=== PATIENT | male | born 1965 | race Caucasian/White ===

== ENCOUNTER 2018-04-03 18:17 | Observation (INO) | payer OTHER ==
[2018-04-03] MEDS ORDERED: NORMAL SALINE 1000 ML 1,000 ML IV ONE ×2 (18:49→20:53)
[2018-04-03] MEDS ORDERED: ASPIRIN 325 MG TABLET PO ONE (18:49)
--- NOTE | 2018-04-03 18:52 | ER Document Report ---
ED Dizziness/Weakness - General Chief Complaint: Syncope Stated Complaint: SYNCOPAL EPISODE Time Seen by Provider: 04/03/18 18:39 TRAVEL OUTSIDE OF THE [place] IN LAST 30 DAYS: No - HPI Patient complains to provider of: Syncope - This 53-year-old man presents for evaluation of an episode of syncope. He notes that for the last 2 days he was out size and working. He began to feel unwell while sitting at the table having pain in the chart right arm and a sense of nausea and diaphoresis at which time he stood up to go to the bedroom while he was walking to the bedroom he had a syncopal episode. He lost consciousness entirely fell to the ground. He hit his knee, at the time his family member found him call for help. He came back around afterwards said that he feels incredibly tired discontinued to feel great fatigue since. He denies any episodes like this in the past, he does have a history of hypertension hyperlipidemia as well as diabetes no history of UT or CVA in the past. Nothing is seen to make it any better nothing is seen to make it any worse except for walking. - Related Data Allergies/Adverse Reactions: No Known Allergies Allergy (Verified 08/16/13 17:41) Past Medical History - General Information source: Patient - Social History Smoking Status: Unknown if Ever Smoked Chew tobacco use (# tins/day): No Frequency of alcohol use: Occasional Drug Abuse: None Lives with: Parents Family History: Reviewed & Not Pertinent Patient has suicidal ideation: No Patient has homicidal ideation: No - Past Medical History Cardiac Medical History: Reports: Hx Hypercholesterolemia, Hx Hypertension Pulmonary Medical History: Reports: Hx Bronchitis, Hx Pneumonia Endocrine Medical History: Reports: Hx Diabetes Mellitus Type 2 Renal/ Medical History: Denies: Hx Peritoneal Dialysis Past Surgical History: Reports: Hx Oral Surgery, Hx Orthopedic Surgery - L4-L5 discectomy - Immunizations Hx Diphtheria, Pertussis, Tetanus Vaccination: Yes Review of Systems - Review of Systems -: Yes All other systems reviewed and negative Physical Exam - Vital signs Vitals: Resp Pulse Ox 18 96 04/03/18 18:36 04/03/18 18:36 - General General appearance: Lethargic In distress: None - HEENT Head: Normocephalic Eyes: Normal Conjunctiva: Normal Cornea: Normal Neck: Normal - Respiratory Respiratory status: No respiratory distress Chest status: Nontender Breath sounds: Normal Chest palpation: Normal - Cardiovascular Rhythm: Regular Heart sounds: Normal auscultation - Abdominal Inspection: Normal Distension: No distension Bowel sounds: Normal Tenderness: Nontender - Back Back: Normal, Nontender - Extremities General upper extremity: Normal inspection General lower extremity: Normal inspection - Neurological Neuro grossly intact: Yes - Skin Skin Temperature: Warm Course - Re-evaluation Re-evalutation: 04/04/18 03:35 Mr. Nicolas is a 53-year-old man presented after an episode of syncope having been outside for prolonged period of time with the prodrome that included right sided chest symptoms. Given the concern for his constellation of symptoms initiated broad-spectrum workup including cardiac. Patient with initial hypotension, administered IV fluids for this patient's hypotension. After 2 L of normal saline this patient's blood pressure improved to a normal systolic range, his laboratory evaluation demonstrated an acute kidney injury suggestive of dehydration a post renal azotemia. Given his persistent lightheadedness symptoms with a history suggestive of potential risk factors for cardiac etiology will plan for this patient to undergo admission with monitoring. Have discussed patient's care with hospitalist who agrees at this time for admission. We will continue to monitor and emergency department and reassess as necessary. - Vital Signs Vital signs: Temp Pulse Resp BP Pulse Ox 15 85/53 L 97 04/04/18 02:05 04/04/18 02:05 04/03/18 22:35 - Laboratory Result Diagrams: 04/03/18 18:35 04/03/18 18:35 Laboratory results interpreted by me: 04/03/18 04/03/18 18:35 18:35 WBC 17.5 H Absolute Neutrophils 13.5 H Carbon Dioxide 21 L Creatinine 1.71 H Est GFR ( Amer) 51 L Est GFR (Non-Af Amer) 42 L Glucose 162 H Creatine Kinase 178 H - EKG Interpretation by Ia EKG shows normal: Sinus rhythm - 89 bpm, normal axis, no appreciable ST segment changes, relatively unchanged from previous 04/01/2014 Discharge - Discharge Clinical Impression: Hypotension Syncope Qualifiers: Syncope type: unspecified Qualified Code(s): R55 - Syncope and collapse Condition: Stable Disposition: ADMITTED INPATIENT Admitting Provider: Hospitalist Unit Admitted: Medical Floor
[2018-04-03 18:59] LABS: ABSOLUTE BASOPHILS # (AUTO) 0.1 10^3/uL (0.0-0.2); ABSOLUTE EOSINOPHILS # (AUTO) 0.1 10^3/uL (0.0-0.6); ABSOLUTE LYMPHOCYTES (AUTO) 2.9 10^3/uL (0.5-4.7); ABSOLUTE MONOCYTES (AUTO) 0.9 10^3/uL (0.1-1.4); ABSOLUTE NEUT (AUTO) 13.5 10^3/uL (1.7-8.2); BASOPHILS % (AUTO) 0.4 % (0-2); EOSINOPHILS % (AUTO) 0.6 % (0-6); HEMATOCRIT 43.3 % (37.9-51.0); HEMOGLOBIN 14.9 g/dL (13.5-17.0); LYMPHOCYTES % (AUTO) 16.5 % (13-45); MEAN CORPUSCULAR HEMOGLOBIN 31.5 pg (27.0-33.4); MEAN CORPUSCULAR HGB CONC 34.3 g/dL (32.0-36.0); MEAN CORPUSCULAR VOLUME 92 fl (80-97); MONOCYTES % (AUTO) 5.4 % (3-13); PLATELET COUNT 303 10^3/uL (150-450); RED BLOOD COUNT 4.72 10^6/uL (4.35-5.55); RED CELL DISTRIBUTION WIDTH 13.3 % (11.5-14.0); SEGMENTED NEUTROPHILS % (AUTO) 77.1 % (42-78); TOTAL CELLS COUNTED % (AUTO) 100 %; WHITE BLOOD COUNT 17.5 10^3/uL (4.0-10.5)
[2018-04-03 19:04] LABS: PROTHROMBIN TIME 13.7 SEC (11.4-15.4)
[2018-04-03 19:18] LABS: ALANINE AMINOTRANSFERASE 25 U/L (21-72); ALBUMIN 4.6 g/dL (3.5-5.0); ALKALINE PHOSPHATASE 42 U/L (38-126); ANION GAP 17 (5-19); ASPARTATE AMINO TRANSFERASE 28 U/L (17-59); BILIRUBIN,DIRECT 0.4 mg/dL (0.0-0.4); BILIRUBIN,TOTAL 0.7 mg/dL (0.2-1.3); BLOOD UREA NITROGEN 13 mg/dL (7-20); CALCIUM 9.7 mg/dL (8.4-10.2); CARBON DIOXIDE 21 mmol/L (22-30); CHLORIDE 104 mmol/L (98-107); CREATINE KINASE 178 U/L (55-170); GLUCOSE 162 mg/dL (75-110); POTASSIUM 3.7 mmol/L (3.6-5.0); SODIUM 141.9 mmol/L (137-145)
[2018-04-03 19:27] LABS: CREATINE KINASE MB 2.25 ng/mL (<4.55)
[2018-04-03 19:29] LABS: TROPONIN I < 0.012 ng/mL
--- NOTE | 2018-04-03 20:09 | RADIOLOGY REPORT (SQ) ---
EXAM DESCRIPTION: CHEST 2 VIEWS COMPLETED DATE/TIME: 04/03/2018 7:53 pm REASON FOR STUDY: syncopal COMPARISON: 04/11/2013 EXAM PARAMETERS: NUMBER OF VIEWS: two views TECHNIQUE: Digital Frontal and Lateral radiographic views of the chest acquired. RADIATION DOSE: NA LIMITATIONS: none FINDINGS: LUNGS AND PLEURA: There is ill-defined opacification in both lower lung vazquez. There is opacification posteriorly and inferiorly on the lateral view. MEDIASTINUM AND HILAR STRUCTURES: No masses or contour abnormalities. HEART AND VASCULAR STRUCTURES: Heart normal size. No evidence for failure. BONES: No acute findings. HARDWARE: None in the chest. OTHER: No other significant finding. IMPRESSION: Cannot exclude a lower lobe pneumonia on either side. TECHNICAL DOCUMENTATION: JOB ID: [id number] [employer]- All Rights Reserved Reading location - IP/workstation name: [email or web address]
[2018-04-03] MEDS ORDERED: MAGNESIUM HYDROXIDE SUSP 30 ML UDCUP PO PRN (22:05)
[2018-04-03] MEDS ORDERED: ACETAMINOPHEN 325 MG TABLET PO PRN (22:05)
[2018-04-03] MEDS ORDERED: NORMAL SALINE 1000 ML 1,000 ML IV PRN (22:05)
[2018-04-03] MEDS ORDERED: ONDANSETRON HCL INJ/PF 4 MG/2 ML SDV IV PRN (22:05)
[2018-04-03] MEDS ORDERED: DEXTROSE 50%-WATER 25 GM/50 ML DISP.SYRIN IV PRN ×2 (22:12)
[2018-04-03] MEDS ORDERED: GLUCAGON,HUMAN RECOMB 1 MG INJ IM PRN (22:12)
[2018-04-03] MEDS ORDERED: INSULIN LISPRO 100 UNIT/ML 3 ML VIAL SUBCUT PRN (22:12)
[2018-04-03] MEDS ORDERED: DEXTROSE 40% GEL 15 GM TUBE PO PRN ×2 (22:12)
--- NOTE | 2018-04-03 22:26 | EKG REPORT ---
SEVERITY:- NORMAL ECG - SINUS RHYTHM : Confirmed by: Ananya Simental MD 03-Apr-2018 22:26:12
[2018-04-03] MEDS ORDERED: ATORVASTATIN CALCIUM 10 MG TABLET PO ONE (22:30)
--- NOTE | 2018-04-03 22:46 | PDOC H&P ---
History of Present Illness Admission Date/PCP: 04/03/18 22:05 [facility] Patient complains of: "I passed out" History of Present Illness: NICOLAS RIBEIRO is a 53 year old male who with history of multiple medical problems that will be mentioned below presented to the emergency room with a calcium of syncope. The patient spent 6 hours outside repairing a water pump yesterday and about 5 hours today cutting grass. He was sitting to eat dinner when he had a syncopal episode followed by nausea and vomiting as well as right arm and jaw pain. Denies any chest pain or palpitations, dyspnea or hemoptysis. No leg pain or edema or recent travels or surgeries. No fever or chills. He was noted to be hypotensive by EMS with a systolic blood pressure of 72. He responded to hydration in the emergency room. When he came to the ER is EKG showed normal sinus rhythm with a rate of 89 with Q waves in lead III. His labs were remarkable for a creatinine of 1.7 and leukocytosis of 17.5 with a blood glucose of 162. His blood pressure was 125/ 75 here with respiratory rate of 15 pulse oximetry of 95% on room air. Chest x- ray showed the suspected bibasal lower lung vazquez opacifications however the patient had no respiratory symptoms and denied choking on food or aspiration. His CK was 171 and otherwise cardiac enzymes were negative. He was given hydration with IV normal saline as well as aspirin and Lipitor. He was admitted to an observation telemetry bed for further evaluation and monitoring. Past Medical History Past Medical History: Obstructive sleep apnea on home CPAP at 14 cm water, ongoing tobacco abuse Cardiac Medical History: Reports: Hyperlipidema, Hypertension Pulmonary Medical History: Reports: Bronchitis, Pneumonia, Other - Obstructive sleep apnea on home CPAP at 14 cm water Endocrine Medical History: Reports: Diabetes Mellitus Type 2 Past Surgical History Past Surgical History: Reports: Orthopedic Surgery - L4-L5 discectomy, Other - Right shoulder surgery Social History Lives with: Parents Smoking Status: Current Every Day Smoker - 1 pack of service per day Last Alcohol Use: 04/03/18 - He rarely drinks beer Family History Family History: DM - In both parents Parental Family History Reviewed: Yes Children Family History Reviewed: Yes Sibling(s) Family History Reviewed.: Yes Medication/Allergy Home Medications: Albuterol 2 puff IH Q4H PRN 02/02/12 Alprazolam [Xanax] 1 mg PO DAILY 09/30/11 Ciprofloxacin HCl [Cipro 500 mg Tablet] 500 mg RT_EAR BID 09/30/11 Lovastatin [Altoprev] 20 mg PO DAILY 09/30/11 Metformin HCl [Glumetza] 1,000 mg PO BID 09/30/11 Sulfamethoxazole/Trimethoprim [Septra Susp 800-160 Mg/20 Ml Udcup] 20 ml RT_EAR BID 09/30/11 Hydrocodone Bit/Acetaminophen [Ratcliff 7.5-325 Tablet] 1 each PO Q6H PRN #20 tablet 04/11/13 Levofloxacin [Levaquin 750 mg Tablet] 750 mg PO DAILY #10 tablet 04/11/13 Allergies/Adverse Reactions: No Known Allergies Allergy (Verified 08/16/13 17:41) Review of Systems Review of Systems: As per history of present illness. All pertinent systems were reviewed above. Constitutional, HEENT, cardiovascular, respiratory, GI, , musculoskeletal, neuro, psychiatric, endocrine, integumentary and hematologic systems were reviewed and are otherwise negative/unremarkable except for positive findings mentioned above in the HPI. Physical Exam Vital Signs: Temp Pulse Resp BP Pulse Ox 15 125/76 95 04/03/18 21:30 04/03/18 21:30 04/03/18 21:30 Intake & Output 04/02/18 04/03/18 04/04/18 06:59 06:59 06:59 Intake Total 1000 Balance 1000 Exam: Generally: Very pleasant middle-aged obese male in no acute distress. He is mildly somnolent but easily arousable Vital signs-as listed Head - atraumatic, normocephalic. Pupils - equal, round and reactive to light and accommodation. Extraocular movements are intact. No scleral icterus. Oropharynx - moist mucous membranes and tongue. No pharyngeal erythema or exudate. Neck - supple. No JVD. Carotid pulses 2+ bilaterally. No carotid bruits. No palpable thyromegaly or lymphadenopathy. Cardiovascular - regular rate and rhythm. Normal S1 and S2. No murmurs, gallops or rubs. Lungs - clear to auscultation bilaterally. Abdomen - soft and nontender. Positive bowel sounds. No palpable organomegaly or masses. Extremities - no pitting edema, clubbing or cyanosis. Neuro - grossly non-focal. Skin - no rashes. and rectal exam - deferred. Results Impressions: Chest X-Ray 04/03/18 00:00 IMPRESSION: Cannot exclude a lower lobe pneumonia on either side. Assessment & Plan - Diagnosis (1) Syncope Qualifiers: Syncope type: unspecified Qualified Code(s): R55 - Syncope and collapse Plan: This is likely related to volume depletion and orthostatic hypotension. The patient will be admitted to an observation medically monitored bed. Will check her orthostatics q.12 hours. Will obtain a 2D echo. The patient will be gently hydrated with IV normal saline and monitored for arrhythmias. Differential diagnosis would include neuraly mediated syncope, cardiogenic, arrhythmias related, orthostatic hypotension and less likely hypoglycemia. (2) Hypotension Is this a current diagnosis for this admission?: Yes Plan: He will be hydrated with IV normal saline as mentioned above I will check his orthostatics. (3) Acute kidney injury Is this a current diagnosis for this admission?: Yes Plan: He will be hydrated with IV normal saline and BMP will be checked. Will hold off his metformin (4) Leukocytosis Is this a current diagnosis for this admission?: Yes Plan: This is likely related to stress demargination. CBC will be followed in a.m. I do not believe he has pneumonia as he denied any respiratory symptoms. (5) Type 2 diabetes mellitus Qualifiers: Diabetes mellitus prison insulin use: without prison use Diabetes mellitus complication status: without complication Qualified Code(s): E11.9 - Type 2 diabetes mellitus without complications Is this a current diagnosis for this admission?: Yes Plan: We will hold off metformin and place him on supplemental coverage with Humalog (6) Obstructive sleep apnea Is this a current diagnosis for this admission?: Yes (7) DVT prophylaxis Is this a current diagnosis for this admission?: Yes Plan: Subcutaneous Lovenox and GI prophylaxis with IV Protonix given his nausea and vomiting. - Plan Summary Plan Summary: The plan of care was discussed in details with the patient. I answered all questions. The patient agreed to proceed with the above-mentioned plan. The patient is presumably full code. This note was created by [employer] software and may contain typo errors that may have not been proofread.
[2018-04-03 23:30] LABS: CREATINE KINASE MB 1.75 ng/mL (<4.55)
[2018-04-03 23:39] LABS: TROPONIN I < 0.012 ng/mL
[2018-04-04 05:14] LABS: ABSOLUTE BASOPHILS # (AUTO) 0.1 10^3/uL (0.0-0.2); ABSOLUTE EOSINOPHILS # (AUTO) 0.1 10^3/uL (0.0-0.6); ABSOLUTE LYMPHOCYTES (AUTO) 3.3 10^3/uL (0.5-4.7); ABSOLUTE MONOCYTES (AUTO) 0.6 10^3/uL (0.1-1.4); ABSOLUTE NEUT (AUTO) 6.3 10^3/uL (1.7-8.2); BASOPHILS % (AUTO) 1.1 % (0-2); EOSINOPHILS % (AUTO) 1.3 % (0-6); HEMATOCRIT 38.6 % (37.9-51.0); HEMOGLOBIN 13.6 g/dL (13.5-17.0); LYMPHOCYTES % (AUTO) 31.8 % (13-45); MEAN CORPUSCULAR HEMOGLOBIN 32.3 pg (27.0-33.4); MEAN CORPUSCULAR HGB CONC 35.3 g/dL (32.0-36.0); MEAN CORPUSCULAR VOLUME 92 fl (80-97); MONOCYTES % (AUTO) 5.8 % (3-13); PLATELET COUNT 236 10^3/uL (150-450); RED BLOOD COUNT 4.22 10^6/uL (4.35-5.55); RED CELL DISTRIBUTION WIDTH 12.9 % (11.5-14.0); TOTAL CELLS COUNTED % (AUTO) 100 %; WHITE BLOOD COUNT 10.4 10^3/uL (4.0-10.5)
[2018-04-04 05:37] LABS: ANION GAP 12 (5-19); BLOOD UREA NITROGEN 10 mg/dL (7-20); CALCIUM 8.5 mg/dL (8.4-10.2); CARBON DIOXIDE 18 mmol/L (22-30); CHLORIDE 113 mmol/L (98-107); CREATINE KINASE 127 U/L (55-170); GLUCOSE 99 mg/dL (75-110); POTASSIUM 3.8 mmol/L (3.6-5.0); SODIUM 143.2 mmol/L (137-145)
[2018-04-04 05:43] LABS: CREATINE KINASE MB 1.68 ng/mL (<4.55)
[2018-04-04 05:44] LABS: TROPONIN I < 0.012 ng/mL
[2018-04-04] MEDS ORDERED: ENOXAPARIN SODIUM INJ 40 MG/0.4 ML DISP.SYRIN SUBCUT SCH (10:00)
[2018-04-04] MEDS ORDERED: ALPRAZOLAM 0.5 MG TABLET PO SCH (10:00)
[2018-04-04] MEDS ORDERED: PANTOPRAZOLE SODIUM 40 MG VIAL IV SCH (10:00)
[2018-04-04 12:04] LABS: CREATINE KINASE MB 1.32 ng/mL (<4.55)
[2018-04-04 12:09] LABS: TROPONIN I < 0.012 ng/mL
--- NOTE | 2018-04-04 14:39 | RADIOLOGY REPORT (SQ) ---
EXAM DESCRIPTION: CT HEAD WITHOUT COMPLETED DATE/TIME: 04/04/2018 2:25 pm REASON FOR STUDY: syncope COMPARISON: None. TECHNIQUE: Axial images acquired through the brain without intravenous contrast. Images reviewed wi th bone, brain and subdural windows. Additional sagittal and coronal reconstructions were generated. Images stored on PACS. All CT scanners at this facility use dose modulation, iterative reconstruction, and/or weight based d osing when appropriate to reduce radiation dose to as low as reasonably achievable (ALARA). [facility]: Dose Right [facility]: CareDose [facility]: Dose Right [facility]: Teradose 4D [facility]: Vadio RADIATION DOSE: CT Rad equipment meets quality standard of care and radiation dose reduction techniq ues were employed. CTDIvol: 53.2 mGy. DLP: 1044 mGy-cm. mGy. LIMITATIONS: None. FINDINGS: VENTRICLES: Normal size and contour. CEREBRUM: No masses. No hemorrhage. No midline shift. No evidence for acute infarction. Normal gra y/white matter differentiation. No areas of low density in the white matter. CEREBELLUM: No masses. No hemorrhage. No alteration of density. No evidence for acute infarction. EXTRAAXIAL SPACES: No fluid collections. No masses. ORBITS AND GLOBE: No intra- or extraconal masses. Normal contour of globe without masses. CALVARIUM: No fracture. PARANASAL SINUSES: No fluid or mucosal thickening. SOFT TISSUES: No mass or hematoma. OTHER: No other significant finding. IMPRESSION: NORMAL BRAIN CT WITHOUT CONTRAST. EVIDENCE OF ACUTE STROKE: NO. COMMENT: Quality ID # [id number]: Final reports with documentation of one or more dose reduction techniques (e.g., Automated exposure control, adjustment of the mA and/or kV according to patient size, use of iterative reconstruction technique) TECHNICAL DOCUMENTATION: JOB ID: [id number] [employer]- All Rights Reserved Reading location - IP/workstation name: [email or web address]
--- NOTE | 2018-04-04 14:47 | RADIOLOGY REPORT (SQ) ---
EXAM DESCRIPTION: CTA CHEST COMPLETED DATE/TIME: 04/04/2018 2:25 pm REASON FOR STUDY: R chest pain with inhalation. trauma vs PE COMPARISON: 04/11/2013 TECHNIQUE: CT scan of the chest performed using helical scanning technique with dynamic intravenous contrast injection. Images reviewed with lung, soft tissue and bone windows. Reconstructed coronal and sagittal MPR images reviewed. Additional 3 dimensional post-processing performed to develop Maximal Intensity Projection images (CT P). All images stored on PACS. All CT scanners at this facility use dose modulation, iterative reconstruction, and/or weight based d osing when appropriate to reduce radiation dose to as low as reasonably achievable (ALARA). [facility]: Dose Right [facility]: CareDose [facility]: Dose Right [facility]: Teradose 4D [facility]: Gydget CONTRAST TYPE AND DOSE: contrast/concentration: Isovue 350.00 mg/ml; Total Contrast Delivered: 84.0 ml; Total Saline Delivered: 90.0 ml Contrast bolus optimized for the pulmonary arteries. Not diagnostic for the aorta. RENAL FUNCTION: GFR > 60. RADIATION DOSE: CT Rad equipment meets quality standard of care and radiation dose reduction techniq ues were employed. CTDIvol: 19.8 - 29.8 mGy. DLP: 1089 mGy-cm. . LIMITATIONS: None. FINDINGS: LUNGS AND PLEURA: Subsegmental dependent airspace disease most likely atelectasis. AORTA AND GREAT VESSELS: No aneurysm. Contrast bolus not optimized for the aorta. HEART: No pericardial effusion. Cardiomegaly. PULMONARY ARTERIES: No emboli visualized in the main pulmonary arteries or the segmental branches. HILAR AND MEDIASTINAL STRUCTURES: No identified masses or abnormal nodes. HARDWARE: None in the chest. UPPER ABDOMEN: No significant findings. Limited exam. THYROID AND OTHER SOFT TISSUES: No masses. No adenopathy. BONES: No acute or significant finding. 3D MIPS: Confirm above findings. OTHER: No other significant finding. IMPRESSION: No evidence of pulmonary embolus. No acute findings. COMMENT: Quality ID # [id number]: Final reports with documentation of one or more dose reduction techniques (e.g., Automated exposure control, adjustment of the mA and/or kV according to patient size, use of iterative reconstruction technique) TECHNICAL DOCUMENTATION: JOB ID: [id number] [employer]- All Rights Reserved Reading location - IP/workstation name: [facility]
[2018-04-04 17:11] VITALS: BP 148/86
[2018-04-04] MEDS ORDERED: ATORVASTATIN CALCIUM 10 MG TABLET PO SCH (22:00)
--- NOTE | 2018-04-05 13:03 | EKG REPORT ---
SEVERITY:- NORMAL ECG - SINUS RHYTHM THIS IS NICOLAS RIBEIRO'S EKG AND NOT FLORY RIBEIRO PER ER NURSE : Confirmed on behalf of: Ananya Simental MD 05-Apr-2018 13:03:02
--- NOTE | 2018-04-05 13:18 | XCELERA REPORT ---
[address] [address] Transthoracic Echocardiogram Report Name: NICOLAS RIBEIRO Age: 53 yrs Gender: Male : 1965 Patient Status: Inpatient Patient Location: [place] [address]^A Study Date: 04/04/2018 10:47 AM Procedure: A complete two-dimensional transthoracic echocardiogram was performed (2D, M-mode, spectral and color flow Doppler). The study was technically adequate with some images being suboptimal in quality. Reason For Study: syncope Ordering Physician: ABIOLA BETANCUR Performed By: Shakira Whelan Interpretation Summary The left ventricular ejection fraction is normal. There is mild concentric left ventricular hypertrophy. The left ventricle is grossly normal size. Doppler measurements suggest impaired left ventricular relaxation, which is associated with grade I/IV or mild diastolic dysfunction Wall motion cannot be accurately commented on, but no definite regional wall motion abnormalities noted. Borderline right ventricular enlargement. The right ventricular systolic function is normal. The right atrium is normal in size The left atrial size is normal. There is no mitral valve stenosis. There is no mitral regurgitation noted. There is no aortic valve stenosis No aortic regurgitation is present. There is a trace amount of tricuspid regurgitation Tricuspid regurgitation jet envelope not well defined to measure RV systolic pressure accurately. The aortic root is not well visualized but is probably normal size. The inferior vena cava appeared normal and decreased > 50% with respiration (RAP 5-10 mmHg) There is no pericardial effusion. May consider mobile cardiac telemetry monitoring (MCT) for ruling out transient cardiac dysrythmia MMode/2D Measurements & Calculations RVDd: 3.5 cm LVIDd: 5.0 cm FS: 46.4 % Ao root diam: 3.9 cm IVSd: 1.2 cm LVIDs: 2.7 cm EDV(Teich): 119.6 ml Ao root area: 11.7 cm2 LVPWd: 1.2 cm ESV(Teich): 26.8 ml EF(Teich): 77.6 % Doppler Measurements & Calculations MV E max annie: MV dec slope: Ao V2 max: LV V1 max P.0 cm/sec 132.9 cm/sec 4.9 mmHg MV A max annie: 520.7 cm/sec2 Ao max PG: LV V1 max: 109.6 cm/sec MV dec time: 0.19 sec7.1 mmHg 110.8 cm/sec MV E/A: 0.91 PA V2 max: TR max annie: 90.4 cm/sec 216.5 cm/sec PA max P.3 mmHg TR max P.7 mmHg Left Ventricle The left ventricle is grossly normal size. There is mild concentric left ventricular hypertrophy. The left ventricular ejection fraction is normal. Doppler measurements suggest impaired left ventricular relaxation, which is associated with grade I/IV or mild diastolic dysfunction. Wall motion cannot be accurately commented on, but no definite regional wall motion abnormalities noted. Right Ventricle Borderline right ventricular enlargement. There is normal right ventricular wall thickness. The right ventricular systolic function is normal. Atria The right atrium is normal in size. The left atrial size is normal. Interarterial septum not well visualized and not well dopplered. Cannot comment on ASD/PFO presence. Mitral Valve The mitral valve is grossly normal. There is no mitral valve stenosis. There is no mitral regurgitation noted. Aortic Valve The aortic valve is not well visualized secondary to technical limitations. The aortic valve opens well. There is no aortic valve stenosis. No aortic regurgitation is present. Tricuspid Valve The tricuspid valve is not well visualized, but is grossly normal. There is no tricuspid stenosis. There is a trace amount of tricuspid regurgitation. Tricuspid regurgitation jet envelope not well defined to measure RV systolic pressure accurately. Pulmonic Valve The pulmonic valve is not well visualized. Great Vessels The aortic root is not well visualized but is probably normal size. The inferior vena cava appeared normal and decreased > 50% with respiration (RAP 5-10 mmHg). Effusions There is no pericardial effusion. Incidental Findings May consider mobile cardiac telemetry monitoring (MCT) for ruling out transient AFIB. : ABIOLA BETANCUR Shyamal
--- NOTE | 2018-04-07 07:57 | PDOC DISCHARGE SUMMARY ---
General - Admit/Disc Date/PCP Admission Date/Primary Care Provider: 04/03/18 22:05 Discharge Date: 04/04/18 - Discharge Diagnosis (1) Acute kidney injury Is this a current diagnosis for this admission?: Yes (2) Hypotension Is this a current diagnosis for this admission?: Yes (3) Type 2 diabetes mellitus Is this a current diagnosis for this admission?: Yes - Additional Information Discharge Diet: As Tolerated Discharge Activity: Activity As Tolerated Home Medications: Cyclobenzaprine HCl [Flexeril 10 mg Tablet] 10 mg PO TIDP PRN 04/04/18 Fenofibrate Nanocrystallized [Fenofibrate] 145 mg PO DAILY 04/04/18 Lisinopril [Zestril] 20 mg PO DAILY 04/04/18 Metformin HCl [Glucophage] 1,000 mg PO BID 04/04/18 Rosuvastatin Calcium [Crestor 20 mg Tablet] 20 mg PO QHS 04/04/18 History of Present Illness History of Present Illness: NICOLAS RIBEIRO is a 53 year old male who with history of multiple medical problems that will be mentioned below presented to the emergency room with a calcium of syncope. The patient spent 6 hours outside repairing a water pump yesterday and about 5 hours today cutting grass. He was sitting to eat dinner when he had a syncopal episode followed by nausea and vomiting as well as right arm and jaw pain. Denies any chest pain or palpitations, dyspnea or hemoptysis. No leg pain or edema or recent travels or surgeries. No fever or chills. He was noted to be hypotensive by EMS with a systolic blood pressure of 72. He responded to hydration in the emergency room. When he came to the ER is EKG showed normal sinus rhythm with a rate of 89 with Q waves in lead III. His labs were remarkable for a creatinine of 1.7 and leukocytosis of 17.5 with a blood glucose of 162. His blood pressure was 125/ 75 here with respiratory rate of 15 pulse oximetry of 95% on room air. Chest x- ray showed the suspected bibasal lower lung vazquez opacifications however the patient had no respiratory symptoms and denied choking on food or aspiration. His CK was 171 and otherwise cardiac enzymes were negative. He was given hydration with IV normal saline as well as aspirin and Lipitor. He was admitted to an observation telemetry bed for further evaluation and monitoring. Hospital Course Hospital Course: 53 y.o. M who presented to the ED following an unwitnessed syncopal episode at home. Mother states the patient was working outside in the heat for the last 2 days. The patient was not feeling well at dinner. He got up from the table and walked to his bedroom. She heard him fall to the ground. When she entered his room he was supine on the ground and unresponsive for approximately 1 minute. This primpted her to call 911. Upon arrival to the ED, the patient was mildly HYPOtensive. He was awake and oriented. Head CT negative. EKG showed NSR, no ectopy, ischemia or infarct. Lab work showed an elevated Creatinine (1.7). The patient was IVF resuscitated in the ED with 2L IVF. He was admitted to the hospitalist service for ARF. The patient complained of R lateral axillary pain. A CTA chest was completed to evaluate for possible PE, pulmonary contusions secondary to fall, rib fractures , or (less likely) pneumothorax. Results of the CTA were negative. Following another 1L bolus, the repeat Creatinine was 0.69. Orthostatic cital signs were normal. The patient was able to ambulate around the unit without becoming fatigued, dizzy, hypotensive or tachycardic. The decision was made to discharge the patient home. He was given instructions to hydrate, avoid caffienated beverages, and avoid extraneous physical labor. The patient and his mother stated understanding of the discharge instructions. For any further information regarding the patient's hospital stay, please refer to the EMR. Physical Exam Vital Signs: Temp Pulse Resp BP Pulse Ox 18 148/86 H 97 04/04/18 15:56 04/04/18 15:56 04/04/18 15:56 Results Laboratory Results: 04/04/18 04:50 04/04/18 04:50 04/03/18 04/03/18 04/04/18 22:50 22:50 04:50 Creatine Kinase 140 127 CK-MB (CK-2) 1.75 Troponin I < 0.012 04/04/18 04/04/18 04/04/18 04:50 11:12 11:12 Creatine Kinase 120 CK-MB (CK-2) 1.68 1.32 Troponin I < 0.012 < 0.012 Impressions: Chest X-Ray 04/03/18 00:00 IMPRESSION: Cannot exclude a lower lobe pneumonia on either side. Head CT 04/04/18 00:00 IMPRESSION: NORMAL BRAIN CT WITHOUT CONTRAST. EVIDENCE OF ACUTE STROKE: NO. Chest/Abdomen CTA 04/04/18 13:13 IMPRESSION: No evidence of pulmonary embolus. No acute findings. Status: Imported from [facility] Qualifiers - * PATIENT BEING DISCHARGED WITH ANY OF THE FOLLOWING DIAGNOSIS: No Plan Discharge Plan: DISCHARGE HOME. Time Spent: Less than 30 Minutes
== END 2018-04-04 17:26 | disposition home or self-care (01) ==
LOC: ER 18:17 → INTOOBSV 22:05 → EH 22:05
PROVIDERS: ADMIT Family Medicine; ATTEND Family Medicine
DX: N17.9 Acute kidney failure, unspecified (principal); I95.9 Hypotension, unspecified; E11.9 Type 2 diabetes mellitus without complications; R68.84 Jaw pain; R55 Syncope and collapse; M79.621 Pain in right upper arm; D72.829 Elevated white blood cell count, unspecified; G47.33 Obstructive sleep apnea (adult) (pediatric); F17.210 Nicotine dependence, cigarettes, uncomplicated; I10 Essential (primary) hypertension; E78.5 Hyperlipidemia, unspecified; Z79.899 Other long term (current) drug therapy; Z79.84 Long term (current) use of oral hypoglycemic drugs
CPT/HCPCS: 93005; 99285; 36415 ×2; 82553 ×2; 82962; 82550 ×2; 83735; 85025 ×2; 85610; 80048; 80053; 84484 ×2; 93306; 71046; 70450; 71275; 93010; G0378; J1650; S0164; J7030